=== PATIENT | male | born 1965 | race Hispanic/Latino ===

== ENCOUNTER 2018-07-03 05:50 | Day surgery (SDC) | payer OTHER ==
[~2018-07-03] VITALS: Ht 172.7 cm; Wt 79.4 kg
--- NOTE | 2018-07-03 06:57 | NUR ---
THIS RN PRESENT FOR SCIATIC BLOCK ON PATIENT'S RIGHT LEG. PATIENT IS LAYING ON HIS LEFT SIDE AND TOLERATES THE BLOCK WELL.
--- NOTE | 2018-07-03 08:27 | NUR ---
07/03/18 0827 Melissa Jimenez 0847-PATIENT ARRIVED TO PACU ON 6L MASK RR EVEN. PATIENT REACTIVE TO VOICE EYES OPEN DROWSY. SR. BOOT TO RIGHT LEG ELEVATED ON PILLOW GOOD CAP REFILL AND WARMTH SIENA PEDAL PULSE DUE TO BOOT. PATIENT REPORTING "LITTLE BIT OF PAIN" ABLE TO SLIGHTLY WIGGLE TOES.
--- NOTE | 2018-07-03 09:06 | NUR ---
PUDDING AND ICED WATER GIVEN. PATIENT DRINKING AND EATING AND TOLERATING THAT WELL. OFFICERS @ BS.
[2018-07-03] MEDS ORDERED: NORCO 10-325 T1 EACH PO (09:33)
[2018-07-03] MEDS ORDERED: ULTRAM50 MG PO (09:33)
--- NOTE | 2018-07-03 10:31 | NUR ---
HAS VOIDED QS. READY TO GO HOME. RATES PAIN MILD 1-3/10.
--- NOTE | 2018-07-03 10:50 | NUR ---
LE 1000: PATIENT UP TO THE BATHROOM WITH OFFICER ASSIST. PATIENT AMBULATES WELL, VOIDS, GETS DRESSED AND REQUESTS DC HOME. DC INSTRUCTIONS GIVEN BY ADALBERTO MANN RN. PATIENT TRANSFERS SELF TO . 1045: CALL REPORT GIVEN TO JENNIFER NESBITT AND HER QUESTIONS ARE ANSWERED.
--- NOTE | 2018-07-08 07:06 | OR ---
[facility] [address] [place], [place] [address] Signed DATE OF OPERATION: 07/03/2018 SURGEON: Gurpreet Jarquin MD PREOPERATIVE DIAGNOSIS: Displaced fibular fracture, right. POSTOPERATIVE DIAGNOSIS: Displaced fibular fracture, right. PROCEDURE: Open reduction and internal fixation. ANESTHESIA: General. SPECIMENS AND COMPLICATIONS: There were no specimens or complications. TOURNIQUET TIME: About 40 minutes. WHAT WAS DONE: The patient was taken to the operating room. After anesthesia was induced and airway secured, the right lower extremity was positioned, prepped and draped in the routine sterile fashion. The leg was exsanguinated by elevation. Pneumatic tourniquet about the thigh was inflated to 300 mmHg pressure. A straight lateral approach was made at the distal fibula through the skin and subcutaneous tissue. Self-retaining retractors were placed. The fracture site was identified and gently mobilized. We then able to reduce it and held it with a single bone-holding clamp. We then used an 8-hole one-third semitubular plate to stabilize the fibula and two of the screws were placed in lag mode across the primary fracture site. The wound was gently irrigated and closed in standard fashion. A sterile dressing applied. He was placed in a CAM walker boot, awakened, and taken to the recovery room where he arrived in stable condition. Counts were correct and antibiotic protocols were followed. Gurpreet Jarquin MD Portions of this report were created using voice recognition software. There may be inadvertent computer error. Please read with context in mind. If there are any questions, please contact me. Electronically Signed By: GURPREET JARQUIN MD 07/08/18 0706 PATIENT NAME: SHERIF SINGH OPERATIVE REPORT DATE OF : 63 REPORT #: [id number] PHYSICIAN: GURPREET JARQUIN MD PCP: JAZMÍN MCGRAW MD REPORT IS CONFIDENTIAL AND NOT TO BE RELEASED WITHOUT AUTHORIZATION [address] [address] Signed [facility] /[id number] Copies: ~ Portions of this report were created using voice recognition software. There may be inadvertent computer error. Please read with context in mind. If there are any questions, please contact me. Electronically Signed By: GURPREET JARQUIN MD 07/08/18 0706 PATIENT NAME: SHERIF SINGH OPERATIVE REPORT DATE OF : 63 REPORT #: [id number] PHYSICIAN: GURPREET JARQUIN MD PCP: JAZMÍN MCGRAW MD REPORT IS CONFIDENTIAL AND NOT TO BE RELEASED WITHOUT AUTHORIZATION
== END 2018-07-03 10:15 | disposition home or self-care (01) ==
LOC: DS 05:50 → OPS 05:50 → DS 06:45 → OPS 06:45
PROVIDERS: Orthopaedic Surgery
PROC: 0QSJ04Z Reposition Right Fibula with Internal Fixation Device, Open Approach (ICD-10-PCS; principal; 2018-07-03 06:45)
DX: S82.61XA Displaced fracture of lateral malleolus of right fibula, initial encounter for closed fracture (principal)
CPT/HCPCS: 01480; 64445; 73600; C1713; J0690; J1100; J1170; J1885; J2250; J2405; J2704; J2795; J3010; J7120; L4386